=== PATIENT | female | born 1960 | race Hispanic/Latino ===

== ENCOUNTER → 2019-09-04 | Outpatient (CLI) | payer OTHER ==
[2019-09-04 14:12] LABS: ALBUMIN 3.8 g/dL (3.5-5.0); BILIRUBIN,TOTAL 0.4 mg/dL (0.2-1.0); CRP QUANTITATIVE 16.8 mg/L (0.00-9.0); TOTAL PROTEIN, SERUM 8.1 g/dL (6.0-8.3); URIC ACID 6.8 mg/dL (2.6-7.2)
== END | disposition home or self-care (01) ==
LOC: LAB 12:43
PROVIDERS: ATTEND Internal Medicine
DX: Z79.899 Other long term (current) drug therapy (principal)
CPT/HCPCS: 36415; 80053; 84550; 85651; 86038; 86140; 86431

== ENCOUNTER → 2020-04-04 | Outpatient (CLI) | payer OTHER ==
[2020-04-04 09:49] LABS: CREATININE 1.1 mg/dL (0.5-1.5); MAGNESIUM 2.2 mg/dL (1.80-2.40); URIC ACID 6.2 mg/dL (2.6-7.2)
[2020-04-04 10:23] LABS: CRP QUANTITATIVE 2.4 mg/L (0.00-9.0)
== END | disposition home or self-care (01) ==
LOC: LAB 08:51
PROVIDERS: ATTEND Internal Medicine
DX: M15.0 Primary generalized (osteo)arthritis (principal); Z79.899 Other long term (current) drug therapy
CPT/HCPCS: 36415; 80048; 83735; 84550; 85651; 86038; 86060; 86140; 86431

== ENCOUNTER 2022-01-07 08:53 | Day surgery (SDC) | payer OTHER ==
[2021-12-31 11:01] LABS: BASOPHILS % (AUTO) 0.9 % (0.0-5.0); EOSINOPHILS % (AUTO) 2.6 % (0.0-8.0); HEMATOCRIT 44.2 % (36-48); LYMPHOCYTES % (AUTO) 21.2 % (21.0-51.0); MEAN CORPUSCULAR HEMOGLOBIN 31.1 pg (27.0-33.0); MEAN CORPUSCULAR HGB CONC 32.6 g/dL (32.0-36.0); MEAN CORPUSCULAR VOLUME 95.5 fL (79-99); MONOCYTES % (AUTO) 7.2 % (3.0-13.0); NEUTROPHILS % (AUTO) 67.7 % (40.0-77.0); PLATELET COUNT (AUTO) 196 K/uL (130-400); RED BLOOD CELL COUNT(AUTO) 4.63 MIL/uL (4.00-5.50); WHITE BLOOD COUNT (AUTO) 9.2 K/uL (4.8-10.8)
[2021-12-31 11:16] LABS: POTASSIUM 4.3 mmol/L (3.5-5.1)
[2022-01-06 10:35] VITALS: BP 140/66
[2022-01-07] VITALS (24 sets, daily range): BP systolic 95–120; BP diastolic 40–75
[~2022-01-07] VITALS: Ht 157.5 cm; Wt 103.1 kg
[~2022-01-07 08:53] MED LIST: 0.9%NACL 1000ML 1,000 ML IV ONE; AEC81 PO; AMLO-517 PO; CEFAZOLIN SODIUM 1 GM VIAL IVP SCH; CHOL500045 PO; EMPA1TAB3 PO; MULT-1367 PO; OMEG-148 PO; ROSU5TAB12 PO
[2022-01-07] MEDS ORDERED: MIDAZOLAM HCL 1 MG/ML 2ML VIAL ONE (09:36)
[2022-01-07] MEDS ORDERED: FENTANYL CITRATE PF 50 MCG/1 ML 2ML VIAL ONE ×4 (09:36→13:44)
[2022-01-07] MEDS ORDERED: ROCURONIUM 10MG/1ML SYR 10 MG/ML ML ONE (09:38)
[2022-01-07] MEDS ORDERED: DEXAMETHASONE SOD PHOSPHATE 4 MG/ML 1ML VIAL ONE (09:40)
[2022-01-07] MEDS ORDERED: ONDANSETRON 4MG INJ ONE ×2 (09:41→14:49)
[2022-01-07] MEDS ORDERED: BUPIVACAINE/EPI/PF 0.25% 10ML VIAL IJ ONE (09:47)
[2022-01-07] MEDS ORDERED: BUPIVACAINE/EPI/PF 0.25% 30ML VIAL IJ ONE (09:54)
[2022-01-07] MEDS ORDERED: CEFAZOLIN SODIUM 2 GM VIAL IV ONE (11:10)
[2022-01-07] MEDS ORDERED: EPHEDRINE SULFATE 50 MG/ML AMPULE ONE (11:16)
[2022-01-07] MEDS ORDERED: PHENYLEPHRINE HCL 10 MG/ML 1ML VIAL IV ONE (11:19)
[2022-01-07] MEDS ORDERED: ARTIFICIAL TEARS 3.5 GM OINTMENT ONE (11:19)
[2022-01-07] MEDS ORDERED: GLYCOPYRROLATE 1 MG/5 ML SYRINGE ONE (11:21)
[2022-01-07] MEDS ORDERED: NEOSTIGMINE 5MG/5ML SYR IV ONE (13:11)
[2022-01-07] MEDS ORDERED: THROMBIN-JMI 5000 UNIT/VIAL TP ONE (13:11)
[2022-01-07] MEDS ORDERED: BACITRACIN 28.4 GM OINT TP ONE (13:41)
[2022-01-07] MEDS ORDERED: SCOPOLAMINE HYDROBROMIDE 1 EACH ADH..PATCH TD ONE (14:59)
== END 2022-01-07 18:59 | disposition home or self-care (01) ==
LOC: DAH 08:53
PROVIDERS: ATTEND Surgery
DX: E04.2 Nontoxic multinodular goiter (principal); Z20.822 Contact with and (suspected) exposure to COVID-19; I10 Essential (primary) hypertension; E66.9 Obesity, unspecified; E11.9 Type 2 diabetes mellitus without complications; M10.9 Gout, unspecified; M19.90 Unspecified osteoarthritis, unspecified site; Z82.49 Family history of ischemic heart disease and other diseases of the circulatory system; Z83.3 Family history of diabetes mellitus; Z90.710 Acquired absence of both cervix and uterus; Z90.49 Acquired absence of other specified parts of digestive tract; Z90.89 Acquired absence of other organs; Z98.890 Other specified postprocedural states; Z79.899 Other long term (current) drug therapy; Z68.41 Body mass index [BMI] 40.0-44.9, adult; Z79.01 Long term (current) use of anticoagulants; Z79.82 Long term (current) use of aspirin
CPT/HCPCS: 36415 ×2; 60220; 80048; 82310; 82948 ×3; 83970; 85025; 87635; 93005; A4215; A4221; A4222; A4223; A4600; A4649 ×2; A4663; A6206; A6260; C1713 ×2; C9803; J0690 ×2; J1100; J2250; J2370; J2405 ×2; J2710; J3010 ×4; J3490 ×4; J7030

== ENCOUNTER 2024-12-04 06:58 | Day surgery (SDC) | payer OTHER ==
[~2024-12-04] VITALS: Ht 157.5 cm; Wt 75.3 kg
[2024-12-04] VITALS (13 sets, daily range): BP systolic 90–118; BP diastolic 56–69; PULSE 68–87; RESP 15–18; TEMP 97.5–97.7
[~2024-12-04 06:58] MED LIST changes: -0.9%NACL 1000ML 1,000 ML IV ONE; -CEFAZOLIN SODIUM 1 GM VIAL IVP SCH; -EMPA1TAB3 PO; +LEVO50CA4 PO; -MULT-1367 PO; -OMEG-148 PO; -ROSU5TAB12 PO; +ROSU5TAB51 PO; +SENN8.6T90 PO; +TIRZ7.5P SQ
[2024-12-04] MEDS: 0.9%NACL 1000ML 1,000 ML IV ONE (08:11)
[2024-12-04] MEDS ORDERED: proPOFol 10 MG/ML 20ML VIAL IV ONE (10:01)
[2024-12-04] MEDS ORDERED: LIDOCAINE HCL 1% 20 ML VIAL ONE (10:02)
== END 2024-12-04 10:45 | disposition home or self-care (01) ==
LOC: ENDO 06:58 → DAH 06:58 → ENDO 10:45
PROVIDERS: ATTEND Internal Medicine
DX: R10.12 Left upper quadrant pain (principal); K59.01 Slow transit constipation; K29.70 Gastritis, unspecified, without bleeding; K25.9 Gastric ulcer, unspecified as acute or chronic, without hemorrhage or perforation; K44.9 Diaphragmatic hernia without obstruction or gangrene; K63.9 Disease of intestine, unspecified; K63.5 Polyp of colon; K64.0 First degree hemorrhoids; K63.89 Other specified diseases of intestine; K57.30 Diverticulosis of large intestine without perforation or abscess without bleeding; D12.2 Benign neoplasm of ascending colon; D12.4 Benign neoplasm of descending colon; I10 Essential (primary) hypertension; E78.5 Hyperlipidemia, unspecified; E11.9 Type 2 diabetes mellitus without complications; F41.9 Anxiety disorder, unspecified; M19.90 Unspecified osteoarthritis, unspecified site; E66.9 Obesity, unspecified; Z90.710 Acquired absence of both cervix and uterus; Z98.890 Other specified postprocedural states; Z79.899 Other long term (current) drug therapy; Z68.30 Body mass index [BMI] 30.0-30.9, adult
CPT/HCPCS: 82948 ×2; 43239; 45385; J7030; J2704; A4620; A4215; J3490

== ENCOUNTER 2025-03-21 06:30 | Day surgery (SDC) | payer OTHER ==
[~2025-03-21] VITALS: Ht 157.5 cm; Wt 83.5 kg
[2025-03-21] VITALS (8 sets, daily range): BP systolic 92–111; BP diastolic 51–71; PULSE 70–75; RESP 16–17; TEMP 97.6
[~2025-03-21 06:30] MED LIST changes: -LEVO50CA4 PO; +LEVO50CA5 PO
[2025-03-21] MEDS ORDERED: proPOFol 10 MG/ML 20ML VIAL IV ONE (08:03)
[2025-03-21] MEDS ORDERED: SUCR1TAB2 PO (12:07)
[2025-03-21] MEDS ORDERED: PANT40TA54 PO (12:07)
[2025-03-21] MEDS: 0.9%NACL 1000ML 1,000 ML IV ONE (12:08)
== END 2025-03-21 09:12 | disposition home or self-care (01) ==
LOC: ENDO 06:30 → DAH 06:30 → ENDO 09:12
PROVIDERS: ATTEND Internal Medicine Gastroenterology
DX: D50.9 Iron deficiency anemia, unspecified (principal); K25.9 Gastric ulcer, unspecified as acute or chronic, without hemorrhage or perforation; K29.50 Unspecified chronic gastritis without bleeding; K31.89 Other diseases of stomach and duodenum; K44.9 Diaphragmatic hernia without obstruction or gangrene; I10 Essential (primary) hypertension; E11.9 Type 2 diabetes mellitus without complications; F41.9 Anxiety disorder, unspecified; E78.5 Hyperlipidemia, unspecified; M19.90 Unspecified osteoarthritis, unspecified site; Z90.710 Acquired absence of both cervix and uterus; Z90.89 Acquired absence of other organs; K59.01 Slow transit constipation; Z86.0100 Personal history of colon polyps, unspecified; Z79.899 Other long term (current) drug therapy
CPT/HCPCS: 43239; 82948; J7030; J2704; A4620; A4215; J3490

== ENCOUNTER → 2025-06-17 | Outpatient (CLI) | payer OTHER ==
[~2025-06-17] MED LIST changes: +PANT40TA54 PO; -SENN8.6T90 PO; +SUCR1TAB2 PO; -TIRZ7.5P SQ
[2025-06-17 14:19] LABS: IMMATURE GRANULOCYTE ABSOLUTE 0.03 K/uL (0-1); NUCLEATED RED BLOOD CELLS 0.0 % (0.0-0.19); PLATELET COUNT (AUTO) 194 K/uL (130-400); RED BLOOD CELL COUNT(AUTO) 4.14 MIL/uL (4.00-5.50); RED CELL DISTRIBUTION WIDTH 13.7 % (11.0-15.5); WHITE BLOOD COUNT (AUTO) 7.1 K/uL (4.8-10.8)
[2025-06-17 14:31] LABS: INR 1.03 (0.85-1.15)
[2025-06-17 14:33] LABS: ASPARTATE AMINOTRANSFERASE 18.0 U/L (10-37); CREATININE 0.9 mg/dL (0.5-1.0); GAMMA GLUTAMYL TRANSFERASE 28.0 U/L (5-85); GLOMERULAR FILTR. RATE CALC 71.0 mL/min (>90); GLUCOSE,RANDOM 88.0 mg/dL (70-105); SODIUM SERUM 141.0 mmol/L (136-145); TOTAL PROTEIN, SERUM 7.5 g/dL (6.0-8.3); UREA NITROGEN, BLOOD 29.0 mg/dL (7-18)
== END | disposition home or self-care (01) ==
LOC: LAB 13:43
PROVIDERS: ATTEND Internal Medicine
DX: R10.10 Upper abdominal pain, unspecified (principal); Z79.899 Other long term (current) drug therapy
CPT/HCPCS: 36415; 80053; 82977; 85025; 85610

== ENCOUNTER → 2025-06-20 | Outpatient (CLI) | payer OTHER ==
[~2025-06-20] MED LIST changes: +GADOTERATE MEGLUMINE 10 MMOL/20 ML VIAL IV ONE
--- NOTE | 2025-06-21 12:49 | HMCIMG ---
EXAM: MR Abdomen With and Without Intravenous Contrast CLINICAL HISTORY: Patient presents with upper abdominal pain. TECHNIQUE: Multisequence, multiplanar magnetic resonance images of the abdomen obtained before and after intravenous contrast administration. CONTRAST: Intravenous contrast administered. COMPARISON: None provided. FINDINGS: LOWER THORAX: No pleural effusion. LIVER: Mild hepatomegaly; right hepatic lobe measures up to 18.2 cm craniocaudally. Hepatic steatosis. A 0.6 cm simple cyst in segment IVB. GALLBLADDER AND BILE DUCTS: No gallstones. No biliary ductal dilatation. PANCREAS: Unremarkable. No ductal dilatation. SPLEEN: Splenomegaly measuring 12.2 cm. ADRENALS: A 4.8 x 4.6 x 3.3 cm peripherally enhancing right adrenal nodule containing macroscopic fat. KIDNEYS: Normal size and configuration. No hydronephrosis or mass. STOMACH AND BOWEL: Uncomplicated colonic diverticula. No acute bowel process. LYMPH NODES: No lymphadenopathy. VASCULATURE: No abdominal aortic aneurysm. IMPRESSION: Peripherally enhancing right adrenal nodule with fat content, likely representing a myelolipoma or an adrenal adenoma. Mild hepatomegaly with hepatic steatosis. Simple hepatic cyst in segment IVB. Splenomegaly. Uncomplicated colonic diverticula. Recommendation: Recommend dedicated adrenal protocol CT for further evaluation of right adrenal lesion, if clinically warranted. /[place]
== END | disposition home or self-care (01) ==
LOC: RAH 07:42
PROVIDERS: ATTEND Internal Medicine
DX: K76.0 Fatty (change of) liver, not elsewhere classified (principal); K57.30 Diverticulosis of large intestine without perforation or abscess without bleeding; K76.89 Other specified diseases of liver; R16.2 Hepatomegaly with splenomegaly, not elsewhere classified; E27.8 Other specified disorders of adrenal gland; R10.10 Upper abdominal pain, unspecified
CPT/HCPCS: 74183; A9575